=== PATIENT | male | born 1990 | race Two or more races ===

== ENCOUNTER → 2020-12-03 | Emergency (ER) | payer MEDICAID, OTHER ==
[~2020-12-03] VITALS: Ht 190.5 cm; Wt 104.8 kg
[2020-12-03 13:17] VITALS: BP 142/94
== END | disposition left against medical advice (07) ==
LOC: ER 13:13
DX: Z76.0 Encounter for issue of repeat prescription (principal); Z53.21 Procedure and treatment not carried out due to patient leaving prior to being seen by health care provider